=== PATIENT | female | born 1980 | race Caucasian/White ===

== ENCOUNTER 2017-01-20 06:26 | Inpatient (IN) | payer OTHER ==
[~2017-01-20] VITALS: Ht 167.6 cm; Wt 82.6 kg
[2017-01-20] MEDS ORDERED: RINGERS SOLUTION,LACTATED 1,000 ML IV ONE (06:32)
[2017-01-20] MEDS ORDERED: METOCLOPRAMIDE HCL 5 MG/ML 2 ML VIAL IVP ONE (06:45)
[2017-01-20] MEDS ORDERED: CeFAZolin 2 GM/DEXTROSE 50 ML IV ONE ×2 (06:45→07:20)
[2017-01-20] MEDS ORDERED: CITRIC ACID/SODIUM CITRATE 30 ML SOLUTION UDCUP PO ONE (06:45)
[2017-01-20 06:56] VITALS: BP 123/66
[2017-01-20] MEDS ORDERED: PREN1TAB80 PO (06:56)
[2017-01-20] MEDS ORDERED: MORPHINE SULFATE/PF 0.5 MG/ML 10 ML AMP ONE (07:20)
[2017-01-20] MEDS ORDERED: FentaNYL CITRATE-PF 100 MCG/2 ML VIAL ONE (07:20)
[2017-01-20] MEDS ORDERED: GUM MASTIC/STORAX/MSAL/ALCOHOL LIQUID 0.67 ML VIAL TP ONE (07:20)
[2017-01-20] MEDS ORDERED: ONDANSETRON HCL 4 MG/2 ML VIAL IVP PRN ×2 (07:45)
[2017-01-20] MEDS ORDERED: DiphenhydrAMINE HCL 50 MG/ML VIAL IVP PRN ×2 (07:45)
[2017-01-20] MEDS ORDERED: PROMETHAZINE HCL 12.5 MG in SODIUM CHLORIDE 0.9% 50 ML IV PRN (07:45)
[2017-01-20] MEDS ORDERED: NALOXONE HCL 0.4 MG/ML VIAL IVP PRN (07:45)
[2017-01-20] MEDS ORDERED: MEPERIDINE-PF 25 MG/ML SYRINGE IVP PRN (07:45)
[2017-01-20] MEDS ORDERED: FentaNYL CITRATE-PF 100 MCG/2 ML VIAL IVP PRN ×4 (07:45)
[2017-01-20] MEDS ORDERED: NALBUPHINE HCL 10 MG/ML VIAL IVP PRN ×2 (07:45)
[2017-01-20 07:46] LABS: BASOPHILS # (AUTO) 0.05 K/uL (0.00-0.20); BASOPHILS % (AUTO) 0.5 % (0.0-2.0); EOSINOPHILS # (AUTO) 0.31 K/uL (0.00-0.70); EOSINOPHILS % (AUTO) 3.33 % (1.0-6.0); HEMATOCRIT 30.7 % (36-46); HEMOGLOBIN 10.2 g/dL (12.0-16.0); LYMPHOCYTES # (AUTO) 1.9 K/uL (1.0-4.8); LYMPHOCYTES % (AUTO) 19.9 % (22.0-44.0); MEAN CORPUSCULAR HEMOGLOBIN 31.3 pg (26.0-34.0); MEAN CORPUSCULAR HGB CONC 33.1 G/dL (31.0-37.0); MEAN CORPUSCULAR VOLUME 94 fL (80-100); MONOCYTES % (AUTO) 10.2 % (2.0-9.0); NEUTROPHILS # (AUTO) 6.2 K/uL (1.8-7.7); NEUTROPHILS % (AUTO) 66.1 % (40.0-70.0); PLATELET COUNT (AUTO) 166 K/uL (150-450); RED BLOOD CELL COUNT(AUTO) 3.25 MIL/uL (4.00-5.20); RED CELL DISTRIBUTION WIDTH 14.5 % (11.5-14.5); WHITE BLOOD COUNT (AUTO) 9.4 K/uL (4.5-11.0)
[2017-01-20] MEDS ORDERED: OXYGEN THERAPY IH SCH ×4 (08:00)
[2017-01-20] MEDS ORDERED: ACETAMINOPHEN 1000 MG/ISO-OSM 100 ML IV ONE (09:44)
[2017-01-20] MEDS ORDERED: LANOLIN 7 GM OINTMENT TP PRN (09:45)
[2017-01-20] MEDS ORDERED: METHYLERGONOVINE MALEATE 0.2 MG TABLET PO PRN (09:45)
[2017-01-20] MEDS: NALBUPHINE HCL 10 MG/ML VIAL IVP PRN (12:07)
[2017-01-20] MEDS: DEXTROSE 5%-LACTATED RINGERS 1,000 ML IV SCH ×2 (13:36→22:22)
[2017-01-20] MEDS: CeFAZolin 2 GM/DEXTROSE 50 ML IV SCH (16:45)
[2017-01-20] MEDS: ACETAMINOPHEN 1000 MG/ISO-OSM 100 ML IV SCH (17:47)
[2017-01-21] MEDS: NALBUPHINE HCL 10 MG/ML VIAL IVP PRN (00:02)
[2017-01-21] MEDS: CeFAZolin 2 GM/DEXTROSE 50 ML IV SCH (00:37)
[2017-01-21] MEDS: ACETAMINOPHEN 1000 MG/ISO-OSM 100 ML IV SCH (01:39)
[2017-01-21] MEDS: IBUPROFEN 800 MG TABLET PO PRN ×3 (06:50→21:09)
[2017-01-21 06:58] LABS: BASOPHILS # (AUTO) 0.03 K/uL (0.00-0.20); BASOPHILS % (AUTO) 0.3 % (0.0-2.0); EOSINOPHILS # (AUTO) 0.24 K/uL (0.00-0.70); EOSINOPHILS % (AUTO) 2.01 % (1.0-6.0); HEMATOCRIT 30.9 % (36-46); HEMOGLOBIN 10.3 g/dL (12.0-16.0); LYMPHOCYTES % (AUTO) 8.6 % (22.0-44.0); MEAN CORPUSCULAR HEMOGLOBIN 31.4 pg (26.0-34.0); MEAN CORPUSCULAR HGB CONC 33.2 G/dL (31.0-37.0); MEAN CORPUSCULAR VOLUME 94 fL (80-100); MONOCYTES # (AUTO) 0.7 K/uL (0.1-1.0); MONOCYTES % (AUTO) 6.2 % (2.0-9.0); NEUTROPHILS # (AUTO) 9.7 K/uL (1.8-7.7); RED BLOOD CELL COUNT(AUTO) 3.27 MIL/uL (4.00-5.20); RED CELL DISTRIBUTION WIDTH 14.8 % (11.5-14.5); WHITE BLOOD COUNT (AUTO) 11.7 K/uL (4.5-11.0)
[2017-01-21] MEDS: SENNA/DOCUSATE SODIUM 187-50 MG TABLET PO PRN ×2 (09:42→21:10)
[2017-01-21] MEDS: MAGNESIUM HYDROXIDE SUSPENSION 30 ML UDCUP PO PRN ×2 (09:42→21:09)
[2017-01-21] MEDS: OxyCODONE HCL/ACETAMINOPHEN 5-325 MG TABLET PO PRN ×2 (12:41→18:09)
[2017-01-22] MEDS: OxyCODONE HCL/ACETAMINOPHEN 5-325 MG TABLET PO PRN ×3 (01:04→18:15)
[2017-01-22] MEDS: IBUPROFEN 800 MG TABLET PO PRN ×4 (03:32→21:51)
[2017-01-22] MEDS: SENNA/DOCUSATE SODIUM 187-50 MG TABLET PO PRN ×2 (09:47→21:51)
[2017-01-22] MEDS: MAGNESIUM HYDROXIDE SUSPENSION 30 ML UDCUP PO PRN (09:48)
[2017-01-22] MEDS ORDERED: RINGERS SOLUTION,LACTATED 1,000 ML IV ONE (11:24)
[2017-01-22 12:57] LABS: BASOPHILS # (AUTO) 0.07 K/uL (0.00-0.20); BASOPHILS % (AUTO) 0.7 % (0.0-2.0); EOSINOPHILS # (AUTO) 0.31 K/uL (0.00-0.70); EOSINOPHILS % (AUTO) 3.16 % (1.0-6.0); HEMATOCRIT 30.4 % (36-46); HEMOGLOBIN 9.9 g/dL (12.0-16.0); LYMPHOCYTES # (AUTO) 1.5 K/uL (1.0-4.8); LYMPHOCYTES % (AUTO) 15.3 % (22.0-44.0); MEAN CORPUSCULAR HEMOGLOBIN 30.9 pg (26.0-34.0); MEAN CORPUSCULAR HGB CONC 32.7 G/dL (31.0-37.0); MEAN CORPUSCULAR VOLUME 95 fL (80-100); MONOCYTES # (AUTO) 0.7 K/uL (0.1-1.0); MONOCYTES % (AUTO) 7.4 % (2.0-9.0); NEUTROPHILS # (AUTO) 7.2 K/uL (1.8-7.7); NEUTROPHILS % (AUTO) 73.5 % (40.0-70.0); RED BLOOD CELL COUNT(AUTO) 3.22 MIL/uL (4.00-5.20); RED CELL DISTRIBUTION WIDTH 15.3 % (11.5-14.5); WHITE BLOOD COUNT (AUTO) 9.7 K/uL (4.5-11.0)
[2017-01-23] MEDS: OxyCODONE HCL/ACETAMINOPHEN 5-325 MG TABLET PO PRN ×3 (01:19→10:19)
[2017-01-23] MEDS: IBUPROFEN 800 MG TABLET PO PRN (05:05)
[2017-01-23] MEDS: SENNA/DOCUSATE SODIUM 187-50 MG TABLET PO PRN (09:59)
[2017-01-23] MEDS: MAGNESIUM HYDROXIDE SUSPENSION 30 ML UDCUP PO PRN (09:59)
[2017-01-23] MEDS ORDERED: HYDR-309 PO (12:25)
[2017-01-23] MEDS ORDERED: IBUP-2070 PO (12:26)
[2017-01-23] MEDS ORDERED: DSS100 PO (12:28)
[2017-01-25] MEDS ORDERED: PHENYTOIN SODIUM 50 MG/ML IV ONE (12:00)
[2017-01-25] MEDS ORDERED: OXYTOCIN 10 UNITS/ML VIAL IM ONE (12:00)
== END 2017-01-23 12:55 | disposition home or self-care (01) | DRG 766 ==
LOC: 4S 06:26 → OBSVTOIN 06:26
PROVIDERS: ADMIT Specialist; ATTEND Specialist
PROC: 10D00Z1 Extraction of Products of Conception, Low, Open Approach (ICD-10-PCS; principal; 2017-01-20)
PROC: 0UB70ZZ Excision of Bilateral Fallopian Tubes, Open Approach (ICD-10-PCS; 2017-01-20)
DX: O32.8XX0 Maternal care for other malpresentation of fetus, not applicable or unspecified (principal); O34.211 Maternal care for low transverse scar from previous cesarean delivery; Z37.0 Single live birth; Z3A.39 39 weeks gestation of pregnancy; O09.523 Supervision of elderly multigravida, third trimester; Z79.899 Other long term (current) drug therapy; Z30.2 Encounter for sterilization; O09.43 Supervision of pregnancy with grand multiparity, third trimester
CPT/HCPCS: 86850; 86900; 86901; 87081; 88302; J0131; J0690; J1165; J2274; J2300; J2590; J2765; J3010; J7120